=== PATIENT | female | born 1990 | race Caucasian/White ===

== ENCOUNTER 2024-01-03 14:41 | Emergency (ER) | payer MEDICAID ==
[2024-01-03] MEDS ORDERED: Lidocaine 4% 1 each Patch TOP PRN (14:55)
[2024-01-03] MEDS: Ketorolac 30 MG/ML SDV IM STA (15:28)
== END 2024-01-03 15:30 | disposition home or self-care (01) ==
LOC: MW.ED 14:41
DX: M54.50 Low back pain, unspecified (principal); Z75.8 Other problems related to medical facilities and other health care
CPT/HCPCS: 96372; 99283; J1885